=== PATIENT | female | born 1965 | race Caucasian/White ===

== ENCOUNTER 2025-01-05 12:21 | Emergency (ER) | payer MEDICAID | END 2025-01-05 13:16 | disposition home or self-care (01) | LOC: LB.ED 12:21 | DX: Z48.01 Encounter for change or removal of surgical wound dressing (principal); Z48.89 Encounter for other specified surgical aftercare; F17.210 Nicotine dependence, cigarettes, uncomplicated; Z96.642 Presence of left artificial hip joint; Z91.048 Other nonmedicinal substance allergy status; Z79.899 Other long term (current) drug therapy | CPT/HCPCS: 99282; 99283 ==